=== PATIENT | female | born 1960 | race Caucasian/White ===

== ENCOUNTER 2021-08-28 10:14 | Outpatient (REF) | payer OTHER, SELFPAY ==
--- NOTE | ~2021-08-28 | MM_ITS ---
EXAMINATION: MM SCREENING DIGITAL BREAST TOMOSYNTHESIS, BILATERAL CLINICAL INFORMATION: Screening. Asymptomatic. The lifetime risk of breast cancer based on the Tyrer-Cuzick Model is 5%. COMPARISON: Mammography: 07/14/2020, 07/09/2019, 03/28/2018 TECHNIQUE: Digital breast tomosynthesis is performed in both the craniocaudal and mediolateral oblique views along with computer-aided detection (CAD). Synthesized 2D images are generated from the tomosynthesis. FINDINGS: There are scattered areas of fibroglandular density (ACR BI-RADS breast composition Category b). There are no significant masses, abnormal calcifications, or other abnormalities. Right axillary node stable. Skin contours are smooth. No significant changes. MM/MM tomosynthesis screening RT IMPRESSION: No significant changes from prior studies. ASSESSMENT: BI-RADS 1: Negative RECOMMENDATION: Routine annual mammography screening. This patient's information was entered into a reminder system with a target due date for their next mammogram.
== END 2021-08-28 10:15 | disposition home or self-care (01) ==
LOC: HO.MAMMO 10:14
PROVIDERS: Visit Provider Family Medicine
DX: Z12.31 Encounter for screening mammogram for malignant neoplasm of breast (principal)
CPT/HCPCS: 77063; 77067

== ENCOUNTER 2022-09-01 08:03 | Outpatient (REF) | payer OTHER, SELFPAY ==
--- NOTE | ~2022-09-01 | MM_ITS ---
EXAMINATION: MM SCREENING DIGITAL BREAST TOMOSYNTHESIS, BILATERAL CLINICAL INFORMATION: Screening. Asymptomatic. The lifetime risk of breast cancer based on the Tyrer-Cuzick Model is 5%. COMPARISON: Mammography: 08/28/2021, 07/14/2020, 07/09/2019 TECHNIQUE: Digital breast tomosynthesis is performed in both the craniocaudal and mediolateral oblique views along with computer-aided detection (CAD). Synthesized 2D images are generated from the tomosynthesis. FINDINGS: There are scattered areas of fibroglandular density (ACR BI-RADS breast composition Category b). There are no significant masses, abnormal calcifications, or other abnormalities. Parenchymal pattern is similar to prior studies. There is no developing density or architectural abnormality. The axilla and skin contours are unremarkable. No significant changes. MM/MM tomosynthesis screening BI IMPRESSION: No mammographic evidence of malignancy. ASSESSMENT: BI-RADS 1: Negative RECOMMENDATION: Routine annual mammography screening. This patient's information was entered into a reminder system with a target due date for their next mammogram.
== END 2022-09-01 08:04 | disposition home or self-care (01) ==
LOC: HO.MAMMO 08:03
PROVIDERS: Visit Provider Family Medicine
DX: Z12.31 Encounter for screening mammogram for malignant neoplasm of breast (principal)
CPT/HCPCS: 77063; 77067

== ENCOUNTER 2023-09-06 07:55 | Outpatient (REF) | payer OTHER, SELFPAY ==
--- NOTE | ~2023-09-06 | MM_ITS ---
EXAMINATION: MM SCREENING DIGITAL BREAST TOMOSYNTHESIS, BILATERAL CLINICAL INFORMATION: Screening. Asymptomatic. COMPARISON: Mammography: 09/01/2022, 08/28/2021, 07/14/2020, 07/09/2019 TECHNIQUE: Digital breast tomosynthesis is performed in both the craniocaudal and mediolateral oblique views along with computer-aided detection (CAD). Synthesized 2D images are generated from the tomosynthesis. FINDINGS: There are scattered areas of fibroglandular density (ACR BI-RADS breast composition Category b). There are no suspicious masses, suspicious grouped calcifications, or areas of architectural distortion in either breast. The parenchymal pattern is stable from prior exams. No skin or axillary abnormality. MM/MM tomosynthesis screening BI IMPRESSION: No mammographic evidence of malignancy. ASSESSMENT: BI-RADS BI-RADS 1 - Negative RECOMMENDATION: Routine annual mammography screening. 1 year F/U This examination should not preclude the clinical evaluation of a suspicious palpable abnormality. This patient's information was entered into a reminder system with a target due date for their next mammogram.
== END 2023-09-06 07:56 | disposition home or self-care (01) ==
LOC: HO.MAMMO 07:55
PROVIDERS: PCP Family Medicine; Visit Provider Family Medicine
DX: Z12.31 Encounter for screening mammogram for malignant neoplasm of breast (principal)
CPT/HCPCS: 77063; 77067

== ENCOUNTER → 2023-09-06 08:00 | Outpatient (BNV) | payer OTHER, SELFPAY | PROVIDERS: PCP Family Medicine; Visit Provider Radiology Diagnostic Radiology | DX: Z12.31 Encounter for screening mammogram for malignant neoplasm of breast (principal) | CPT/HCPCS: 77063; 77067 ==

== ENCOUNTER 2024-03-21 20:28 | Emergency (ER) | payer OTHER, SELFPAY ==
--- NOTE | ~2024-03-21 | CT_ITS ---
EXAMINATION: CT HEAD WITHOUT CONTRAST CLINICAL INFORMATION: Dizziness head pressure COMPARISON: CT head from 10/11/2006 TECHNIQUE: Contiguous axial imaging was performed from the skull base to vertex without intravenous administration of contrast. This CT examination was performed using dose optimization techniques as appropriate, variously including the following: *Automated exposure control *Adjustment of mA and/or kV according to patient size (this includes techniques or standardized protocols for targeted exams where dose is matched to indication/reason for exam; i.e. extremities or head) *Use of iterative reconstruction technique DLP: 638 mGy-cm FINDINGS: There is no evidence of acute intracranial hemorrhage or territorial infarction. No abnormal mass effect or midline shift is seen. Marquez to white matter differentiation is well preserved. No extra-axial fluid collections are identified. The ventricles are normal in size. There is no abnormal attenuation within the brain parenchyma. The osseous structures and soft tissues are normal. The mastoid air cells and visualized portions of the paranasal sinuses are well aerated. CT/CT head/brain wo IV con IMPRESSION: No acute intracranial pathology.
--- NOTE | 2024-03-21 20:33 | ED_ITS ---
HPI - General Adult General Chief complaint: General Medical Stated complaint: ref from for CAT scan Time Seen by Provider: 03/21/24 22:12 History of Present Illness HPI narrative: Patient is a 63 year old female presents today with having headache to the right mastoid area extending to the ear. Patient's denies any fever chills. There was no loss of consciousness. There was no change in vision. The headache was mild. Not associated with any focal weakness. No history of being on blood thinners. No chest pain or shortness of breath. No diaphoresis. Sent in from urgent care for further evaluation. Patient did complaining of some vertigo which she had had in the past. Patient claims it was like a spinning sensation that she is very similar to previous bouts. Never had a heart attack. No history of diabetes, hypertension, high cholesterol, mi. smoking in the remote past when she was in her 30s. Related Data Allergies Allergy/AdvReac Type Severity Reaction Status Date / Time No Known Allergies Allergy Verified 03/21/24 20:36 Review of Systems 2 Review of Systems: No chest pain or shortness breath no nausea no vomiting. Positive dizziness Yes all other systems are reviewed and are negative [facility] Past Medical History Attestation statement: The following information was validated with the patient. Social History Social History Smoked in Last 30 Days: No Advance Directives: No Advance Directives Information Provided: No Do you have a plan to hurt others: No Plan Physical Exam ED Vital Signs: Vital Signs - 24 hr 03/21/24 20:35 03/21/24 22:23 Temperature 97.4 F 97.5 F Pulse Rate 86 54 Respiratory Rate 19 18 Blood Pressure 185/85 H 139/83 Pulse Oximetry 100 98 Oxygen Delivery Method Room Air Room Air BMI result Body Mass Index 24.9 Appearance: Alert. Oriented X3. No acute distress. Eyes: Pupils equal, round and reactive to light. ENT: Pharynx normal. Neck: Normal inspection. Neck supple. No lymph nodes noted. No crepitus CVS: Normal heart rate and rhythm. Pulses normal. Normal S1 and S2 Respiratory: No respiratory distress. Breath sounds normal. No Wheezing. No rales Abdomen: Soft and nontender. No rigidity. No distention. good BS x4 Skin: Skin warm and dry. Normal skin color. Normal skin turgor. Extremities: No lower extremity edema. Neurovascular intact to all extremities. No Lacerations. No Rash Neuro: Oriented X 3. No motor deficit. No sensory deficit. Moving all extermities. No slurred speech Course Course Course Narrative: This is a rapid medical exam performed by Jany Navarro NP: Additional HPI, ROS, PE not included below will be deferred to primary provider. Patient is a 63-year-old female presenting to the ED from urgent care complaining of dizziness, headache, numbness/pressure under right ear for the past week. Referred here for CT. BP 185/85 in triage. Plan: CT, EKG, labs Medical Decision Making Medical Decision Making [facility] Narrative: Patient presented with nonspecific head pain near the mastoid area radiating to the ear on the right side. CT scan of the head by my interpretation was grossly negative. I reviewed radiology's reading. Patient's sed rate was 3. There is no evidence for temporal arteritis. White count is 8 this is baseline. INR is normal. Patient's electrolyte is normal. LFTs normal. Patient's troponin is less than 2.7. Symptoms not consistent with ACS. Differential Diagnosis Differential Diagnoses: The differential diagnosis associated with the presentation includes Intracranial bleed, mass, temporal arteritis, tension headache, mastoiditis, vertigo Admission/Observation Consideration of admission/observation: Escalation of care including admission/observation considered Lab Data [facility] Lab Attestation statement: I reviewed the patient's lab results. 03/21/24 21:02 03/21/24 21:02 Labs: Lab Results 03/21/24 Range/Units 21:02 WBC 8.1 (4.8-10.8) X10*3/uL RBC 4.21 (4.20-5.50) X10*6/uL Hgb 13.5 (12.0-16.0) g/dl Hct 40.0 (37.0-47.0) % MCV 95.0 (80.0-98.0) fL MCH 32.1 (27.0-33.0) pg MCHC 33.8 (31.0-35.0) g/dl RDW 13.3 (11.0-16.0) % Plt Count 246 (160-400) X10*3/uL MPV 8.8 L (9.4-12.3) fL Immature Gran % (Auto) 0.2 (0.0-0.4) % Neut % (Auto) 49.3 (45-73) % Lymph % (Auto) 40.3 H (20-40) % Swain % (Auto) 8.5 (2-11) % Eos % (Auto) 1.1 (0-4) % Baso % (Auto) 0.6 (0-2) % Lymph # (Auto) 3.3 (1.2-4.9) X10*3/uL Swain # (Auto) 0.7 (0.1-1.2) X10*3/uL Eos # (Auto) 0.1 (0.0-0.4) X10*3/uL Baso # (Auto) 0.1 (0.0-0.2) X10*3/uL Abs Immat Gran (auto) 0.02 (0.00-0.03) X10*3/uL Absolute Neuts (auto) 4.0 (2.0-8.3) x10*3/uL Absolute Nucleated RBC 0.000 (0.0-0.012) X10*3/uL Nucleated RBC % (auto) 0.0 (0.0-0.2) /100WBC ESR 3 (0-20) MM/HR PT 11.5 (11.1-13.3) SEC INR 0.9 (0.9-1.1) Sodium 143 (135-145) mmol/L Potassium 3.8 (3.3-5.1) mmol/L Chloride 108 (96-108) mmol/L Carbon Dioxide 22 (22-29) mmol/L Anion Gap 17 (12-20) BUN 14 (9-16) mg/dL Creatinine 0.78 (0.5-1.4) mg/dL Estim Creat Clear Calc 68.6 Estimated GFR > 60 Random Glucose 122 H (60-115) mg/dL Calcium 9.7 (8.4-10.2) mg/dL Total Bilirubin 0.4 (0.0-1.0) mg/dL AST 15 (5-31) U/L ALT 14 (0-31) U/L Alkaline Phosphatase 66 (39-117) U/L Troponin I High Sens < 2.7 (<3.5-17.0) ng/L Total Protein 7.3 (6.5-8.0) g/dL Albumin 4.7 (3.5-5.0) g/dL Independent Interpretation I performed an independent interpretation of an: EKG (Sinus heart rate is 75 MS QRS QTC within normal limits there is PVCs noted. They are unifocal.) and CT Scan (CT scan head was grossly negative) Radiology Impression Discussion of test interpretation with radiology: I have reviewed the radiologist's reading. Tests considered The following testing was considered but not selected: CTA of the head and neck Chronic Conditions Vertigo Discharge Plan Discharge Clinical Impression: Headache Patient Disposition: Home, Self-Care Instructions: Acute Headache (DC) Referrals: Gretel Ramon MD [Primary Care Provider] - 03/23/24 Print Language: Turkish
[2024-03-21 20:35] VITALS: BP 185/85; PULSE 86; RESP 19; TEMP 36.3; O2SAT 100; BMI 24.9
--- NOTE | 2024-03-21 20:36 | ECG_ITS ---
Test Reason : dizzy Blood Pressure : / mmHG Vent. Rate : 074 BPM Atrial Rate : 074 BPM P-R Int : 158 ms QRS Dur : 100 ms QT Int : 384 ms P-R-T Axes : 031 010 022 degrees QTc Int : 426 ms Sinus rhythm with sinus arrhythmia with frequent Premature ventricular complexes Cannot rule out Anterior infarct , age undetermined Abnormal ECG When compared with ECG of 14-AUG-2004 10:48, Premature ventricular complexes are now Present Referred By: Sue Navarro Electronically Signed By:DAVID LALA MD
[2024-03-21 21:07] LABS: MANUAL DIFF FLAG NO
[2024-03-21 21:09] LABS: Basophils Absolute Auto 0.1 X10*3/uL (0.0-0.2); Basophils Percent Auto 0.6 % (0-2); Eosinophils Absolute Auto 0.1 X10*3/uL (0.0-0.4); Eosinophils Percent Auto 1.1 % (0-4); Hemoglobin 13.5 g/dl (12.0-16.0); Imm Gran Abs Auto 0.02 X10*3/uL (0.00-0.03); Imm Gran Pct Auto 0.2 % (0.0-0.4); Lymphocytes Absolute Auto 3.3 X10*3/uL (1.2-4.9); Lymphocytes Percent Auto 40.3 % (20-40); Mean Corpuscular HGB Conc 33.8 g/dl (31.0-35.0); Mean Corpuscular Hemoglobin 32.1 pg (27.0-33.0); Mean Platelet Volume 8.8 fL (9.4-12.3); Monocytes Absolute Auto 0.7 X10*3/uL (0.1-1.2); Monocytes Percent Auto 8.5 % (2-11); Neutrophils Percent Auto 49.3 % (45-73); Platelet Count 246 X10*3/uL (160-400); Red Blood Count 4.21 X10*6/uL (4.20-5.50); Red Cell Distribution Width 13.3 % (11.0-16.0); White Blood Count 8.1 X10*3/uL (4.8-10.8)
[2024-03-21 21:22] LABS: INTERNATIONAL NORM RATIO 0.9 (0.9-1.1); Prothrombin Time 11.5 SEC (11.1-13.3)
[2024-03-21 21:27] LABS: Alanine Aminotransferase 14 U/L (0-31); Albumin Level 4.7 g/dL (3.5-5.0); Alkaline Phosphatase 66 U/L (39-117); Anion Gap 17 (12-20); Aspartate Amino Transferase 15 U/L (5-31); Bilirubin Total 0.4 mg/dL (0.0-1.0); Blood Urea Nitrogen 14 mg/dL (9-16); Calcium 9.7 mg/dL (8.4-10.2); Carbon Dioxide 22 mmol/L (22-29); Chloride 108 mmol/L (96-108); Creatinine Clr Calc Pharmacy 68.6; Estimated Glomerular Filt Rate > 60; Glucose Random 122 mg/dL (60-115); Potassium 3.8 mmol/L (3.3-5.1); Sodium 143 mmol/L (135-145); Total Protein 7.3 g/dL (6.5-8.0)
[2024-03-21 21:50] LABS: Troponin-I High Sensitivity < 2.7 ng/L (<3.5-17.0)
[2024-03-21 22:23] VITALS: BP 139/83; PULSE 54; RESP 18; TEMP 36.4; O2SAT 98
[2024-03-21 23:24] LABS: Erythrocyte Sedimentation Rate 3 MM/HR (0-20)
[2024-03-22 00:01] VITALS: BP 139/83; PULSE 54; RESP 18; TEMP 36.4; O2SAT 98
== END 2024-03-22 00:02 | disposition home or self-care (01) ==
PROVIDERS: Registered Nurse Emergency; Emergency Provider Emergency Medicine Emergency Medical Services; PCP Family Medicine
DX: R51.9 Headache, unspecified (principal); R42 Dizziness and giddiness; R20.0 Anesthesia of skin; H92.01 Otalgia, right ear; I49.3 Ventricular premature depolarization; Z87.891 Personal history of nicotine dependence
CPT/HCPCS: 36415; 70450; 80053; 84484; 85025; 85610; 85652; 93005; 99284

== ENCOUNTER → 2024-03-21 20:36 | Outpatient (BNV) | payer OTHER, SELFPAY | PROVIDERS: Emergency Provider Emergency Medicine Emergency Medical Services; PCP Family Medicine; Visit Provider Internal Medicine Cardiovascular Disease | DX: R42 Dizziness and giddiness (principal); I49.3 Ventricular premature depolarization | CPT/HCPCS: 93010 ==

== ENCOUNTER 2024-04-18 09:30 | Outpatient (RCR) | payer OTHER, SELFPAY ==
[2024-04-12 07:58] VITALS: BP 128/62; PULSE 62
== END 2024-06-26 08:34 | disposition home or self-care (01) ==
LOC: HO.PT 09:30
PROVIDERS: PCP Family Medicine; Visit Provider Nurse Practitioner
DX: H81.10 Benign paroxysmal vertigo, unspecified ear (principal)
CPT/HCPCS: 95992; 97161

== ENCOUNTER 2024-05-01 14:20 | Outpatient (AMB) | payer OTHER, SELFPAY ==
[2024-05-01 14:53] VITALS: BP 118/62; PULSE 64; BMI 25.8
--- NOTE | 2024-05-01 14:53 | MHC.OFFVIS ---
Vital Signs 05/01/24 14:53 Height 5 ft 3 in Weight 145 lb 8.081 oz BMI 25.8 BP 118/62 Blood Pressure Location Lt brachial Position Sitting Pulse 64 Pulse Source Pulse Oximeter Intake Visit Reasons: Er- Follow up- Heart Palpitations Allergies No Known Allergies Allergy (Verified 03/21/24 20:36) HPI Comments Details: 64-year-old female presents today for a new patient visit for palpitation. She had went to the emergency room for head pressure and dizziness and her EKG showed frequent PVCs. She denies any chest pains or shortness of breath. She did physical therapy for the dizziness/vertigo and it has been corrected. She reports her heart palpitations as just feeling it more then usual Denies chest pains or shortness of breath. She has had a lot of stress the last year and is grieving and taking a new role within her family. Since the ED visit she has cut back on her caffeine. [facility] Medical History (Updated 05/01/24 @ 15:20 by Vivi Woods NP) Varicose vein of leg Palpitation Smoker Vertigo High cholesterol Osteoporosis Family History (Updated 05/01/24 @ 15:14 by Vivi Woods NP) Sister History of cardiac cath History of cardiac radiofrequency ablation Arrhythmia Hypertension Paternal Uncle Myocardial infarct Review of Systems Const Denies weakness ENT Denies dizziness Card Denies chest pain, Denies chest pain with activity, Denies syncope, Denies rapid heart rate, Denies pedal edema, Denies edema, Denies leg edema, Denies lightheadedness, Denies palpitations, Denies dyspnea, Denies dyspnea on exertion and Denies orthopnea Resp Denies cough, Denies dyspnea and Denies dyspnea on exertion GI Denies hematochezia and Denies change in stool character Musc Denies abnormal gait, Denies muscle cramps, Denies muscle weakness, Denies numbness, Denies radiating pain into limb and Denies tingling Neuro Denies abnormal gait, Denies dizziness, Denies syncope, Denies numbness, Denies tingling and Denies weakness Endo Denies palpitations Physical Exam Vital Signs: Last Vital Signs Pulse 64 05/01/24 14:53 BP 118/62 05/01/24 14:53 BMI result Body Mass Index 25.8 Const General: healthy appearing and no acute distress Orientation/consciousness: patient oriented x3 HEENT Head: Yes normal to inspection Eyes General: appearance normal, both eyes and all related structures Neck Neck: Yes normal visual inspection Chest Chest palpation & inspection: normal inspection of the chest Resp Effort & Inspection: normal respiratory effort Auscultation: clear to auscultation bilaterally Cardio Jugular venous distension: no JVD Palpation: normal PMI Rate: regular rate Rhythm: regular rhythm Heart sounds: S1 normal heart sound present, S2 normal heart sound present, no click, no gallops, no murmurs and no rubs GI Inspection: Yes normal to inspection Palpation (GI): Soft to palpation Skin General skin exam: no rashes or lesions noted Neuro General: patient oriented x3 Extrem General: Yes normal to inspection Psych Appearance: grossly normal Assessment & Plan Assessment & Plan (1) Palpitation: Code(s): R00.2 - Palpitations Category: Medical Plan: EKG in the ED showed frequent PVCs. Will do echocardiogram and holter montior to assess for structual changes, PVCs burden, and arrhythmias. Advised to avoid caffeine, stress mitigation, and good sleep habits. Orders: Orders CA echo transthoracic complete 05/01/24 R00.2 - Palpitations ECG 3 day holter monitor 05/01/24 R00.2 - Palpitations Coding Level of Care Code New Pt Level 3 (14927) Diagnoses Palpitation R00.2
== END 2024-05-01 15:32 | disposition home or self-care (01) ==
PROVIDERS: PCP Family Medicine; Visit Provider Nurse Practitioner
DX: R00.2 Palpitations (principal)
CPT/HCPCS: 99203

== ENCOUNTER → 2024-05-01 14:20 | Outpatient (BNVA) | payer OTHER, SELFPAY | PROVIDERS: PCP Family Medicine; Visit Provider Nurse Practitioner | DX: R00.2 Palpitations (principal) ==

== ENCOUNTER → 2024-05-16 09:58 | Outpatient (REF) | payer OTHER, SELFPAY ==
--- NOTE | 2024-05-16 10:03 | CA_ITS ---
Transthoracic Echocardiogram Patient (Last, First, Middle): Dara Bender M Gender: Female Date of : 1960 Age: 64 Procedure Date: 05/16/2024 Procedure Type: Transthoracic Echocardiogram Location: OP Height: 160.02 cm Weight: 64.86 kg BSA: 1.68 m2 Heart Rate: bpm BP: 110 / 70 mmHg Imagery Intelligence: TO Referring MD: Vivi Woods [employer] Blind[employer]ch: Yonas López MD Symptoms: R00.2 - Palpitations Study Quality: Adequate ECG Rhythm: Sinus Conclusions: - 1. Normal LV ejection fraction 55-60% with impaired relaxation filling pattern 2. Normal cardiac valvular Dopplers 3. Normal RV systolic pressure 4. No gross pericardial effusion Findings Left Ventricle Normal left ventricular size, thickness, and systolic function. The visually estimated ejection fraction is between 55-60%. Spectral Doppler is indicative of an impaired relaxation filling pattern. E/E prime ratio is between 8 and 15 consistent with indeterminate filling pressures. Peak GLS is -16.2%, mildly reduced. Right Ventricle Normal right ventricular cavity size and systolic function. Atria Both atria are normal in size. There is no evidence of interatrial shunt. Aortic Valve Normal aortic valve structure and function. There is no aortic valve stenosis. There is no aortic valve regurgitation. Mitral Valve There is mild anterior and posterior mitral leaflet thickening. There is trace mitral valve regurgitation. There is no mitral valve stenosis. Pulmonic Valve The pulmonic valve is likely normal. Tricuspid Valve Normal tricuspid valve structure. There is trace tricuspid valve regurgitation. The right ventricular systolic pressure is normal. The right ventricular systolic pressure is 16 mmHg. Normal right atrial pressure. There is no evidence of pulmonary hypertension. Great Vessels All visible segments of the aorta are normal in size. The pulmonary artery was not well visualized. Venous The inferior vena cava is normal in size and collapses greater than 50% with inspiration. Pericardium/Pleural There is no evidence of pericardial effusion. Prior Study Comparison No prior study available for comparison. Measurements 2D Linear Measurements IVSd: 1.00 0.6-0.9/0.6-1.0 cm LVIDd: 4.82 3.9-5.3/4.2-5.9 cm LVIDd Index: 2.87 2.4-3.2/2.2-3.1 cm/m2 LVIDs: 3.25 2.0-3.6 cm LVPWd: 0.80 0.7-1.1 cm LA Diam: 3.70 2.7-3.8/3.0-4.0 cm LAIDs Index: 2.20 1.5-2.3 cm/m2 LV Mass: 185.40 67-162/88-224 g LV Mass Index: 110.36 43-95/49-115 g/m2 LVOT Diam: 2.00 3.0+(-)1.3 cm 2D Systolic Function EF 4C: 61.00 >55% EF 2C: 55.20 >55% EF BiP: 58.50 >55% Mitral Valve MV Pk E: 0.63 MV PK A: 0.75 MV Decel Time: 219.00 E/A: 0.80 E'Lateral: 4.57 E'Medial: 3.48 E/E' Med: 18.10 E/E' Lat: 13.80 PHT: 64.00 MVA PHT: 3.44 Decel [place]: 2.88 Aortic Valve AoV Pk Alcon: 1.28 AoV Mn Alcon: 0.91 AoV VTI: 0.27 AoV Pk Grad: 7.00 Aov Mn Grad: 4.00 [place] Cont.VTI: 1.96 LVOT LVOT Pk Alcon: 0.82 LVOT Mn Alcon: 0.53 LVOT VTI: 0.17 LVOT Pk Grad: 3.00 LVOT Mn Grad: 1.00 LVOT Diam: 2.00 LVOT Area: 3.14 Diastolic Function MV Pk E: 0.63 MV Pk A: 0.75 E/A: 0.80 E'Medial: 3.48 E/E' Med: 18.10 E' Laterial: 4.57 E/E' Lat: 13.80 Right Ventricle TAPSE (mm): 27.70 TVS' Alcon: 17.50 Tricuspid Valve TR Pk Alcon: 1.79 TR Pk Grad: 13.00 RA Press: 3.00 RVSP: 16.00 Great Vessels Aorta Sinus of Valsalva: 325.00 2.0-3.5 cm Ao Asc: 3.30 2.1-3.4 cm Updated in Other Vendor System with Status of Final Yonas López MD electronically signed on 05/16/2024 2:31:07 PM with status of Final
--- NOTE | 2024-05-16 10:03 | HM_ITS ---
* Total monitoring time 2 days 13 hours. * Underlying rhythm is sinus with an average rate of 72/Min. * Frequent ventricular ectopy with a burden of 7.5%. Evidence of couplets, triplets, bigeminy and trigeminy. Longest run 3 beats. * Rare supraventricular ectopy. * No significant pauses or high-grade AV blocks. * Patient marker used in association with sinus rhythm and PVC. * Palpitations in patient diary correlates with sinus rhythm with artifact. MTDD
== END ==
LOC: HO.CARD 09:58
PROVIDERS: Visit Provider Nurse Practitioner
DX: R00.2 Palpitations (principal)
CPT/HCPCS: 93242; 93306; 93356

== ENCOUNTER → 2024-05-16 10:03 | Outpatient (BNV) | payer OTHER, SELFPAY | PROVIDERS: Visit Provider Internal Medicine Cardiovascular Disease | DX: I49.3 Ventricular premature depolarization (principal) | CPT/HCPCS: 93244; 93306; 93356 ==

== ENCOUNTER 2024-07-03 13:37 | Outpatient (AMB) | payer OTHER, SELFPAY ==
[2024-07-03 14:03] VITALS: BP 120/62; PULSE 66; BMI 26.2
--- NOTE | 2024-07-03 14:03 | MHC.OFFVIS ---
Vital Signs 07/03/24 14:03 Height 5 ft 3 in Weight 147 lb 11.355 oz BMI 26.2 BP 120/62 Blood Pressure Location Lt brachial Position Sitting Pulse 66 Pulse Source Pulse Oximeter Intake Visit Reasons: 2 mth f/up echo/ holter Allergies No Known Allergies Allergy (Verified 03/21/24 20:36) HPI Comments Details: 64-year-old female presents for a follow-up. She reports occasional palpitations mostly in the evenings. She denies any chest pains, shortness of breath, or sustained palpitations. She reports dizziness but she has had vertigo and did physical therapy for it and it improved. The dizziness only occurs with movement like rolling over in bed. She unfortunately continues to smoke but has cut back on smoking and caffiene. She had a CT done for her lungs which showed mild coronary artery diease. [facility] Medical History Varicose vein of leg Palpitation Smoker Vertigo High cholesterol Osteoporosis Family History Sister History of cardiac cath History of cardiac radiofrequency ablation Arrhythmia Hypertension Paternal Uncle Myocardial infarct Review of Systems Const Denies weakness ENT Denies dizziness Card Denies chest pain, Denies chest pain with activity, Denies syncope, Denies rapid heart rate, Denies pedal edema, Denies edema, Denies leg edema, Denies lightheadedness, Denies palpitations, Denies dyspnea, Denies dyspnea on exertion and Denies orthopnea Resp Denies cough, Denies dyspnea and Denies dyspnea on exertion GI Denies hematochezia and Denies change in stool character Musc Denies abnormal gait, Denies muscle cramps, Denies muscle weakness, Denies numbness, Denies radiating pain into limb and Denies tingling Neuro Denies abnormal gait, Denies dizziness, Denies syncope, Denies numbness, Denies tingling and Denies weakness Endo Denies palpitations Physical Exam Vital Signs: Last Vital Signs Pulse 66 07/03/24 14:03 BP 120/62 07/03/24 14:03 BMI result Body Mass Index 26.2 Const General: healthy appearing and no acute distress Orientation/consciousness: patient oriented x3 HEENT Head: Yes normal to inspection Eyes General: appearance normal, both eyes and all related structures Neck Neck: Yes normal visual inspection Chest Chest palpation & inspection: normal inspection of the chest Resp Effort & Inspection: normal respiratory effort Auscultation: clear to auscultation bilaterally Cardio Jugular venous distension: no JVD Palpation: normal PMI Rate: regular rate Rhythm: regular rhythm Heart sounds: S1 normal heart sound present, S2 normal heart sound present, no click, no gallops, no murmurs and no rubs GI Inspection: Yes normal to inspection Palpation (GI): Soft to palpation Skin General skin exam: no rashes or lesions noted Neuro General: patient oriented x3 Extrem General: Yes normal to inspection Psych Appearance: grossly normal Results Reviewed Results Reviewed: Total monitoring time 2 days 13 hours. Underlying rhythm is sinus with an average rate of 72/Min. Frequent ventricular ectopy with a burden of 7.5%. Evidence of couplets, triplets, bigeminy and trigeminy. Longest run 3 beats. Rare supraventricular ectopy. No significant pauses or high-grade AV blocks. Patient marker used in association with sinus rhythm and PVC. Palpitations in patient diary correlates with sinus rhythm with artifact. Echo Conclusions: - 1. Normal LV ejection fraction 55-60% with impaired relaxation filling pattern 2. Normal cardiac valvular Dopplers 3. Normal RV systolic pressure 4. No gross pericardial effusion Assessment & Plan Assessment & Plan (1) High cholesterol: Code(s): E78.00 - Pure hypercholesterolemia, unspecified Category: Medical (2) Palpitation: Code(s): R00.2 - Palpitations Category: Medical Plan When she was in the ED on 03/21/24 EKG showed frequent PVCs. Holter showed PVC burned of 7.5% in cuplets, triplets, bigeminy, and trigeminy. Fastest was 170 bpm on 05/17/24 which she states she was working from home. Will add small dose beta le to surpress these. CT for her lungs showed mild coronary artery calcifications. She has had no recent lab work in our system. Will send for lipid panel. Discussed in detail about heart healthy lifestyle, not limited to quitting smoking cigarettes, avoidance of fried fatty foods, and exercising as tolerated. Orders: Orders Lipid Panel 07/03/24 E78.00 - Pure hypercholesterolemia, unspecified Basic Metabolic Panel 07/03/24 E78.00 - Pure hypercholesterolemia, unspecified Medications: New metoprolol succinate ER 25 mg PO DAILY 30 tabs 6RF metoprolol succinate ER 12.5 mg (1/2 x 25 mg) PO DAILY 30 days 15 tabs 6RF metoprolol succinate ER 12.5 mg (1/2 x 25 mg) PO DAILY 30 days 15 tabs 6RF Coding Level of Care Code Est Pt Level 3 (28198) Diagnoses High cholesterol E78.00 Palpitation R00.2
== END 2024-07-03 14:35 | disposition home or self-care (01) ==
PROVIDERS: PCP Family Medicine; Visit Provider Nurse Practitioner
DX: E78.00 Pure hypercholesterolemia, unspecified (principal); R00.2 Palpitations
CPT/HCPCS: 99213

== ENCOUNTER → 2024-07-03 13:37 | Outpatient (BNVA) | payer OTHER, SELFPAY | PROVIDERS: PCP Family Medicine; Visit Provider Nurse Practitioner | DX: R00.2 Palpitations (principal); E78.00 Pure hypercholesterolemia, unspecified ==

== ENCOUNTER 2024-09-11 07:52 | Outpatient (REF) | payer OTHER, SELFPAY ==
--- NOTE | ~2024-09-11 | MM_ITS ---
EXAMINATION: MM SCREENING DIGITAL BREAST TOMOSYNTHESIS, BILATERAL CLINICAL INFORMATION: Screening. Asymptomatic. COMPARISON: Mammography: Comparison is made with available priors TECHNIQUE: Digital breast mammography with tomosynthesis is performed in both the craniocaudal and mediolateral oblique views along with computer-aided detection (CAD). FINDINGS: There are scattered areas of fibroglandular density (ACR BI-RADS breast composition Category b). There are no significant masses, abnormal calcifications, or other abnormalities. MM/MM tomosynthesis screening BI IMPRESSION: No mammographic evidence of malignancy. ASSESSMENT: BI-RADS BI-RADS 1 - Negative RECOMMENDATION: Routine annual mammography screening. 1 year F/U This examination should not preclude the clinical evaluation of a suspicious palpable abnormality. This patient's information was entered into a reminder system with a target due date for their next mammogram. Electronically signed by: Maria Del Carmen Abbott DO 09/20/2024 09:38 AM [facility]
== END 2024-09-11 07:53 | disposition home or self-care (01) ==
LOC: HO.MAMMO 07:52
PROVIDERS: PCP Family Medicine; Visit Provider Family Medicine
DX: Z12.31 Encounter for screening mammogram for malignant neoplasm of breast (principal)
CPT/HCPCS: 77063; 77067

== ENCOUNTER → 2024-09-11 08:00 | Outpatient (BNV) | payer OTHER, SELFPAY | PROVIDERS: PCP Family Medicine; Visit Provider Internal Medicine | DX: Z12.31 Encounter for screening mammogram for malignant neoplasm of breast (principal) | CPT/HCPCS: 77063; 77067 ==

== ENCOUNTER 2025-02-12 10:32 | Outpatient (AMB) | payer OTHER, SELFPAY ==
--- NOTE | 2025-02-12 10:45 | MHC.OFFVIS ---
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 After Holter monitor last year she was started on low-dose metoprolol therapy. Continues to have intermittent symptoms of palpitation some days she has worse symptoms then other days. He was no clear pattern to it. She was still drinks a cup of coffee every day. She is very anxious. Said last Tuesday she had episode of very fast heart rate but was particularly anxious. No apparent reason. She is currently not on any cholesterol medications. Do not have last lipid panel. [facility], [facility] Medical History Varicose vein of leg Palpitation Smoker Vertigo High cholesterol Osteoporosis Family History Sister History of cardiac cath History of cardiac radiofrequency ablation Arrhythmia Hypertension Paternal Uncle Myocardial infarct Review of Systems Const Denies chills, Denies fatigue, Denies fever(s), Denies frequent falls, Denies weakness, Denies weight gain and Denies weight loss ENT Denies dizziness Card Denies chest pain, Denies leg edema, Denies lightheadedness, Denies palpitations, Denies dyspnea, Denies dyspnea on exertion, Denies orthopnea and Denies other (loss of consciousness) Resp Denies cough, Denies dyspnea and Denies dyspnea on exertion GI Denies hematochezia and Denies change in stool character Musc Denies abnormal gait, Denies muscle weakness, Denies numbness, Denies radiating pain into limb and Denies tingling Neuro Denies abnormal gait, Denies dizziness, Denies frequent falls, Denies numbness, Denies tingling and Denies weakness Endo Denies fatigue and Denies palpitations Physical Exam Vital Signs: Last Vital Signs Pulse 66 02/12/25 10:46 BP 120/78 02/12/25 10:46 BMI result Body Mass Index 26.9 Const General: healthy appearing, no acute distress, alert, awake, anxious and well groomed Nutritional Appearance: overweight Orientation/consciousness: patient oriented x3 HEENT Head: Yes normal to inspection Eyes General: appearance normal, both eyes and all related structures Neck Neck: Yes trachea midline, Yes supple and Yes no JVD Chest Chest palpation & inspection: normal inspection of the chest Resp Effort & Inspection: normal respiratory effort Auscultation: clear to auscultation bilaterally Cardio Jugular venous distension: no JVD Palpation: normal PMI Rate: regular rate Rhythm: regular rhythm Heart sounds: S1 normal heart sound present, S2 normal heart sound present, no click, no gallops, no murmurs and no rubs GI Inspection: Yes normal to inspection Palpation (GI): Soft to palpation Skin General skin exam: no rashes or lesions noted Neuro General: patient oriented x3 Extrem General: Yes normal to inspection Psych Appearance: grossly normal Assessment & Plan Assessment & Plan (1) PVC (premature ventricular contraction): Code(s): I49.3 - Ventricular premature depolarization Category: Medical Plan: Frequent PVCs still symptomatic in this middle-aged woman with normal echocardiogram. EKGs does not show any significant ischemic changes. She does not have any exertional symptoms that is suggestive of ischemia. I would further uptitrate metoprolol to 25 mg daily. Advised to taper and discontinue caffeine intake. Stress mitigation strategies was discussed. Treatment of anxiety would also benefit for her. Consider sertraline therapy. Advise Holter monitor after uptitrate she was therapy to see if there is enough suppression of her PVC burden (2) High cholesterol: Code(s): E78.00 - Pure hypercholesterolemia, unspecified Category: Medical Plan: Hyperlipidemia without any significant ischemic symptoms at this point time. I would suggest her to undergo coronary calcium score for further evaluation of coronary atherosclerosis that will guide treatment. Please forward copy of lipid panel to us as well. I would not treat her hyperlipidemia unless she was atherosclerotic suggestion on the coronary calcium score. Role of coronary calcium score including prognostic value was discussed with her. She understands agrees and is willing to pursue the same. Will follow up in the clinic otherwise in 1 year's time, sooner p.r.n.. Orders: Orders ECG 3 day holter monitor 1 Month I49.3 - Ventricular premature depolarization CT Coronary Calcium Score 1 Week E78.00 - Pure hypercholesterolemia, unspecified Medications: Changed From metoprolol succinate ER 12.5 mg (1/2 x 25 mg) PO DAILY 30 days 15 tabs 6RF To metoprolol succinate ER 25 mg PO DAILY 30 tabs 6RF 30 days Coding Level of Care Code Est Pt Level 4 (32570) Complex EM visit Add On G2211 Diagnoses PVC (premature ventricular contraction) I49.3 High cholesterol E78.00
[2025-02-12 10:46] VITALS: BP 120/78; PULSE 66; BMI 26.9
== END 2025-02-12 11:22 | disposition home or self-care (01) ==
LOC: HO.HCS 10:33
PROVIDERS: PCP Family Medicine; Visit Provider Internal Medicine Cardiovascular Disease
DX: I49.3 Ventricular premature depolarization (principal); E78.00 Pure hypercholesterolemia, unspecified
CPT/HCPCS: 93010; 99214

== ENCOUNTER → 2025-02-12 10:32 | Outpatient (BNVA) | payer OTHER, SELFPAY | PROVIDERS: PCP Family Medicine; Visit Provider Internal Medicine Cardiovascular Disease | DX: I49.3 Ventricular premature depolarization (principal); E78.00 Pure hypercholesterolemia, unspecified | CPT/HCPCS: 93005 ==

== ENCOUNTER → 2025-03-18 08:41 | Outpatient (REF) | payer OTHER, SELFPAY | LOC: HO.CARD 08:41 | PROVIDERS: PCP Family Medicine; Visit Provider Internal Medicine Cardiovascular Disease | DX: I49.3 Ventricular premature depolarization (principal) | CPT/HCPCS: 93242 ==

== ENCOUNTER → 2025-03-18 08:44 | Outpatient (BNV) | payer OTHER, SELFPAY | PROVIDERS: PCP Family Medicine; Visit Provider Internal Medicine Cardiovascular Disease | DX: I49.3 Ventricular premature depolarization (principal) | CPT/HCPCS: 93244 ==

== ENCOUNTER 2025-05-16 15:08 | Outpatient (AMB) | payer OTHER, SELFPAY ==
[2025-05-16 15:16] VITALS: BP 120/74; PULSE 73; BMI 26.6
--- NOTE | 2025-05-16 15:16 | MHC.OFFVIS ---
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 She was then started on aspirin and atorvastatin therapy. She continues to have intermittent episodes of palpitation but did not bothersome. She is currently taking metoprolol. Holter monitor showed frequent PVCs mostly isolated with total burden of 1.5%. Patient has normal LV systolic function. Patient last LDL through your office was 130 mg/dL. Patient is here to discuss the results. Patient continues to remain active and has no exertional symptoms. [facility] Medical History Varicose vein of leg Palpitation Smoker Vertigo High cholesterol Osteoporosis Family History Sister History of cardiac cath History of cardiac radiofrequency ablation Arrhythmia Hypertension Paternal Uncle Myocardial infarct Review of Systems Const Denies chills, Denies fatigue, Denies fever(s), Denies frequent falls, Denies weakness, Denies weight gain and Denies weight loss ENT Denies dizziness Card Denies chest pain, Denies leg edema, Denies lightheadedness, Denies palpitations, Denies dyspnea, Denies dyspnea on exertion, Denies orthopnea and Denies other (loss of consciousness) Resp Denies cough, Denies dyspnea and Denies dyspnea on exertion GI Denies hematochezia and Denies change in stool character Musc Denies abnormal gait, Denies muscle weakness, Denies numbness, Denies radiating pain into limb and Denies tingling Neuro Denies abnormal gait, Denies dizziness, Denies frequent falls, Denies numbness, Denies tingling and Denies weakness Endo Denies fatigue and Denies palpitations Physical Exam Vital Signs: Last Vital Signs Pulse 73 05/16/25 15:16 BP 120/74 07/31/25 15:16 BMI result Body Mass Index 26.6 Const General: healthy appearing, no acute distress, alert, awake, anxious and well groomed Nutritional Appearance: overweight Orientation/consciousness: patient oriented x3 HEENT Head: Yes normal to inspection Eyes General: appearance normal, both eyes and all related structures Neck Neck: Yes trachea midline, Yes supple and Yes no JVD Chest Chest palpation & inspection: normal inspection of the chest Resp Effort & Inspection: normal respiratory effort Auscultation: clear to auscultation bilaterally Cardio Jugular venous distension: no JVD Palpation: normal PMI Rate: regular rate Rhythm: regular rhythm Heart sounds: S1 normal heart sound present, S2 normal heart sound present, no click, no gallops, no murmurs and no rubs GI Inspection: Yes normal to inspection Palpation (GI): Soft to palpation Skin General skin exam: no rashes or lesions noted Neuro General: patient oriented x3 Extrem General: Yes normal to inspection Psych Appearance: grossly normal Assessment & Plan Assessment & Plan (1) CAD (coronary artery disease): Code(s): I25.10 - Atherosclerotic heart disease of [place] coronary artery without angina pectoris Category: Medical Plan: Patient with presence of coronary atherosclerosis as noted by coronary calcium score. Discussed with patient about pathophysiology of coronary atherosclerosis. Management of this was discussed. She does not have markedly elevated calcium score has no current symptoms and does not require further provocative testing. Although she requires aggressive medical management. Low-dose aspirin therapy is recommended. Also suggest high-intensity statin therapy target goal LDL less than 60 mg/dL. Goals of therapy were discussed to reduce future cardiovascular events including revascularization and/or acute coronary events. This was discussed with her. She understands and agrees. Continue maintain activity level as tolerated. Advised to call me with any exertional symptoms. Follow-up lipid panel and CRP in 1 month (2) PVC (premature ventricular contraction): Code(s): I49.3 - Ventricular premature depolarization Category: Medical Plan: Frequent PVCs although with a burden of 1.5% mostly isolated. She has normal structure of the heart by normal LV ejection fraction. She is currently on metoprolol therapy. His symptoms are not life-limiting. At this point time would not change her pharmacotherapy. Stress mitigation strategies was discussed. Avoidance of stimulants was discussed. Follow up in the clinic in 1 year's time, sooner p.r.n.. Thank you for allowing me to partake in her care. Orders: Orders CRP High Sensitivity Today E78.5 - Hyperlipidemia, unspecified, I25.10 - Atherosclerotic heart disease of [place] coronary artery without angina pectoris Lipid Panel Today I25.10 - Atherosclerotic heart disease of [place] coronary artery without angina pectoris Coding Level of Care Code Est Pt Level 4 (78881) Complex EM visit Add On G2211 Diagnoses CAD (coronary artery disease) I25.10 PVC (premature ventricular contraction) I49.3
== END 2025-05-16 15:47 | disposition home or self-care (01) ==
LOC: HO.HCS 15:08
PROVIDERS: PCP Family Medicine; Visit Provider Internal Medicine Cardiovascular Disease
DX: I25.10 Atherosclerotic heart disease of native coronary artery without angina pectoris (principal); I49.3 Ventricular premature depolarization
CPT/HCPCS: 99214; G2211

== ENCOUNTER → 2025-06-05 10:59 | Outpatient (REF) | payer OTHER, SELFPAY ==
--- NOTE | 2025-06-05 11:01 | CA_ITS ---
Acquisition Time: 2025-06-05 11:32:29 Total Exercise Time: 00:08:44 Test Indications: Medications: Protocol: ALEJANDRA Max HR: 142 BPM 90% of Pred: 157 BPM Max BP: 144/72 mmHG Max Work Load: 10.1 METS Exercise stress test with exercise 8 mins 44 secs of Alejandra Protocol, achieving 91% MPHR, with reports of mild SOB, no chest pain, with isolated PVCs, with normotensive response to exercise. Without any EKG changes meeting criteria for ischemia. In recovery, pt's breathing quickly returned to baseline. Echo images obtained by tech at rest and post peak exercise. Definity contrast utilized. Test reviewed with Dr. López. Referred By: Yonas López Electronically Signed By: Guido Sood
== END ==
LOC: HO.CARD 10:59
PROVIDERS: PCP Family Medicine; Visit Provider Internal Medicine Cardiovascular Disease
DX: I25.10 Atherosclerotic heart disease of native coronary artery without angina pectoris (principal); I49.3 Ventricular premature depolarization; E78.00 Pure hypercholesterolemia, unspecified
CPT/HCPCS: 93350; Q9957

== ENCOUNTER → 2025-06-05 11:01 | Outpatient (BNV) | payer OTHER, SELFPAY | PROVIDERS: PCP Family Medicine | DX: R06.02 Shortness of breath (principal); I49.3 Ventricular premature depolarization | CPT/HCPCS: 93016; 93018; 93350; 93352 ==

== ENCOUNTER 2025-09-17 07:33 | Outpatient (REF) | payer OTHER, SELFPAY ==
--- NOTE | ~2025-09-17 | MM_ITS ---
EXAMINATION: DXA BONE DENSITY AXIAL HISTORY: OTHER SPECIFIED DISORDERS OF BONE DENSITY STRUCTURE TECHNIQUE: [employer] Dual energy absorptiometry (DEXA) of the lumbar spine, total left hip, and femoral neck was performed. COMPARISON: There are no prior studies for comparison. FINDINGS: The bone mineral density of the lumbar spine is 0.987 g/cm2, corresponding to a T-score of -1.6, and a Z-score of -0.3. This is indicative of osteopenia. The bone mineral density of the left total hip is 0.744 g/cm2, corresponding to a T-score of -2.1, and a Z-score of -1.1. This is indicative of osteopenia. The bone mineral density of the left femoral neck is 0.694 g/cm2, corresponding to a T-score of -2.5, and a Z-score of -1.2. This is indicative of osteoporosis. FRACTURE RISK: The FRAX index suggests a risk of major osteoporotic fracture of 13.6%, and of hip fracture 4.2%. MM/XR DEXA axial skeleton IMPRESSION: Based on bone mineral density, and according to World Health Organization (WHO) criteria, the diagnosis is consistent with osteoporosis. Statistically, 68% of repeat scans fall within 1 SD (+/- 0.010 g/cm2 for AP spine L1-L4) and 1 SD (+/- 0.012 g/cm2 for femur total) FRAX is a trademark of the [employer]'s [place] [facility], a World Health Organization (WHO) Collaborating Center. Electronically signed by: Ramiro Aguillon MD 09/17/2025 08:13 AM [facility] [place]
--- NOTE | ~2025-09-17 | MM_ITS ---
EXAMINATION: MM SCREENING DIGITAL BREAST TOMOSYNTHESIS, BILATERAL CLINICAL INFORMATION: Screening. Asymptomatic. COMPARISON: Mammography: Comparison is made with available priors TECHNIQUE: Digital breast mammography with tomosynthesis is performed in both the craniocaudal and mediolateral oblique views along with computer-aided detection (CAD). FINDINGS: There are scattered areas of fibroglandular density. There are no significant masses, abnormal calcifications, or other abnormalities. MM/MM tomosynthesis screening BI IMPRESSION: No mammographic evidence of malignancy. ASSESSMENT: BI-RADS Category 1: Negative RECOMMENDATION: Routine annual mammography screening. 1 year F/U This examination should not preclude the clinical evaluation of a suspicious palpable abnormality. This patient's information was entered into a reminder system with a target due date for their next mammogram. Electronically signed by: Maria Del Carmen Abbott DO 09/17/2025 10:32 AM [facility]
[2025-09-17 09:11] LABS: Cholesterol 164 mg/dL (<200); HDL Cholesterol 63 mg/dL (>40); Triglycerides 119 mg/dL (<150)
== END 2025-09-17 07:34 | disposition home or self-care (01) ==
LOC: HO.MAMMO 07:33
PROVIDERS: Internal Medicine Cardiovascular Disease; PCP Family Medicine; Visit Provider Physician Assistant
DX: Z12.31 Encounter for screening mammogram for malignant neoplasm of breast (principal); M85.89 Other specified disorders of bone density and structure, multiple sites; E78.00 Pure hypercholesterolemia, unspecified; I25.10 Atherosclerotic heart disease of native coronary artery without angina pectoris
CPT/HCPCS: 36415; 77063; 77067; 77080; 80061; 86141

== ENCOUNTER → 2025-09-17 08:15 | Outpatient (BNV) | payer OTHER, SELFPAY | PROVIDERS: PCP Family Medicine; Visit Provider Radiology Diagnostic Radiology | DX: E28.39 Other primary ovarian failure (principal); Z12.31 Encounter for screening mammogram for malignant neoplasm of breast | CPT/HCPCS: 77063; 77067; 77080 ==